=== PATIENT | male | born 1975 | race Caucasian/White ===

== ENCOUNTER 2021-01-18 19:33 | Emergency (ER) | payer OTHER ==
[2021-01-18] MEDS ORDERED: NAPROSYN500 MG PO (21:13)
[2021-01-18] MEDS ORDERED: CYCLOBENZAPRINE10 MG PO (21:13)
== END 2021-01-18 21:55 | disposition home or self-care (01) ==
LOC: ER1 19:33
DX: S39.012A Strain of muscle, fascia and tendon of lower back, initial encounter (principal); F17.200 Nicotine dependence, unspecified, uncomplicated; X50.9XXA Other and unspecified overexertion or strenuous movements or postures, initial encounter
CPT/HCPCS: 72131; 96372; 99284; J1885